=== PATIENT | male | born 1985 | race Caucasian/White ===

== ENCOUNTER 2025-04-26 10:53 | Emergency (ER) | payer OTHER ==
[~2025-04-26] VITALS: Ht 182.9 cm; Wt 100.4 kg
[2025-04-26 11:29] LABS: BASOPHILS 1.3 % (0.2-1.2); EOSINOPHILS 2.0 % (0.8-7.0); LYMPHOCYTES 23.4 % (21.8-53.1); MCH 32.4 PG (25.7-32.2); MCHC 34.6 g/dL (32.3-36.5); MCV 93.7 fL (79.0-92.2); MONOCYTES 8.7 % (5.3-12.2); NEUTROPHILS 64.2 % (34.0-67.9); RBC 4.47 M/uL (4.63-6.08)
[2025-04-26] MEDS ORDERED: VENTOLIN HFA18 GM (11:30)
[2025-04-26] MEDS ORDERED: TIZANIDINE HCL2 M1 (11:30)
[2025-04-26] MEDS ORDERED: BACLOFEN5 MG (11:31)
[2025-04-26] MEDS ORDERED: BUSPIRONE HCL5 MG (11:31)
[2025-04-26] MEDS ORDERED: METHOCARBAMOL500 MG (11:31)
[2025-04-26] MEDS ORDERED: LYRICA25 MG (11:31)
[2025-04-26] MEDS ORDERED: LAMICTAL5 MG (11:31)
[2025-04-26] MEDS ORDERED: [UNRECOGNIZED DRUG - OTHER] (11:32)
[2025-04-26 11:58] LABS: ALCOHOL, MEDICAL <3 mg/dL (<3); ALT (SGPT) 26 U/L (14-59); AST (SGOT) 14 U/L (15-37); GLOMERULAR FILTRATION RATE,EST 93 mL/min (>60); PROTEIN, TOTAL 7.3 g/dL (6.4-8.2); TSH, 3RD GENERATION 1.141 uIU/mL (0.358-3.740); UREA NITROGEN 12 mg/dL (7-18)
[2025-04-26 13:50] LABS: BLOOD/HGB, URINE NEGATIVE (Negative); KETONE, URINE NEGATIVE (Negative); LEUK ESTERASE, URINE NEGATIVE (negative); NITRITE, URINE NEGATIVE (negative)
[2025-04-26 14:04] LABS: AMPHETAMINES, URINE NEGATIVE (NEGATIVE); BARBITURATES, URINE NEGATIVE (NEGATIVE); BENZODIAZEPINE, URINE NEGATIVE (NEGATIVE); CANNABINOID, URINE POSITIVE (NEGATIVE); COCAINE, URINE NEGATIVE (NEGATIVE); ECSTASY, URINE NEGATIVE (NEGATIVE); FENTANYL, URINE NEGATIVE (NEGATIVE); METHADONE, URINE NEGATIVE (NEGATIVE); OPIATES, URINE NEGATIVE (NEGATIVE); OXYCODONE, URINE NEGATIVE (NEGATIVE); PHENCYCLIDINE, URINE NEGATIVE (NEGATIVE)
[2025-04-26] MEDS ORDERED: ONDANSETRON 4 MG TAB ODT SL PRN (17:30)
[2025-04-26] MEDS ORDERED: PREGABALIN 50 MG CAP PO SCH (21:00)
[2025-04-26] MEDS ORDERED: lamoTRIgine 100 MG TAB PO SCH (21:00)
[2025-04-26] MEDS ORDERED: TIZANIDINE HCL 4 MG TABLET PO SCH (21:00)
== END 2025-04-27 07:52 ==
LOC: ED 10:53
PROVIDERS: Emergency Medicine
DX: R45.851 Suicidal ideations (principal); Z79.899 Other long term (current) drug therapy; Z88.0 Allergy status to penicillin; Z91.013 Allergy to seafood
CPT/HCPCS: 36415; 80053; 80307; 81003; 84443; 85025; 99285; G0480